=== PATIENT | male | born 1995 | race Caucasian/White ===

== ENCOUNTER 2018-06-20 11:36 | Emergency (ER) | payer BC, MEDICAID ==
[~2018-06-20] VITALS: Ht 175.3 cm; Wt 65.8 kg
[2018-06-20 12:07] VITALS: BP_SYST 144
--- NOTE | 2018-06-20 14:07 | NUR ---
Patient to ER bed 07 for evaluation. Side rails up. Report given to Candi SNOW.
--- NOTE | 2018-06-20 14:41 | NUR ---
Pt states that he was using a knief in his families restaurant / kitchen when he accidently cut the tip of his right ring finger. Pt denies any nerve pain. Finger is not actively bleeding.
--- NOTE | 2018-06-20 14:51 | NUR ---
ER at bedside examining patient.
[2018-06-20] MEDS: cefTRIAXone 1 GM IVPB PREMIX 50 ML IV ONE (14:58)
[2018-06-20] MEDS: LIDOCAINE/PRILOCAINE 5 GM CREAM (EMLA) TP ONE (15:27)
--- NOTE | 2018-06-20 15:56 | NUR ---
Pt laying comfortably in bed with no signs of distress. Awaiting ER MD Koenig for suture procedure.
--- NOTE | 2018-06-20 16:15 | NUR ---
ER MD Koenig at bedside preparing for suture procedure. Pt refuses procedure, states "I don't want a needle."
--- NOTE | 2018-06-20 16:20 | NUR ---
ER MD Koenig applying dermabond to site. Pt tolerated well.
[2018-06-20] MEDS: LIDOCAINE 1% 10 MG/ML, 20 ML MDV INJ ONE (16:25)
--- NOTE | 2018-06-20 16:33 | NUR ---
TDAP administered to R deltoid. PT tolerated well. No adverse reactions noted.
[2018-06-20] MEDS: DIPH-TET-PERTUS Vaccine 0.5 ML VIAL (ADACEL) I.M. ONE (16:39)
--- NOTE | 2018-06-20 16:39 | NUR ---
Patient given written and verbal discharge instructions and verbalizes understanding. ER MD Koenig discussed with patient the results and treatment provided. Patient in stable condition. ID arm band removed. No RX given. Patient educated on pain management and to follow up with PMD. Pain Scale 0. Opportunity for questions provided and answered. Medication side effect fact sheet provided.
[2018-06-20 16:40] VITALS: BP_SYST 135
== END 2018-06-20 16:39 | disposition home or self-care (01) ==
LOC: SED 11:36
DX: S61.214A Laceration without foreign body of right ring finger without damage to nail, initial encounter (principal); J45.909 Unspecified asthma, uncomplicated; R03.0 Elevated blood-pressure reading, without diagnosis of hypertension; W26.0XXA Contact with knife, initial encounter; Y93.89 Activity, other specified; Y92.89 Other specified places as the place of occurrence of the external cause; Y99.8 Other external cause status
CPT/HCPCS: 12001; 90471; 90715; 99283; J2001